=== PATIENT | female | born 1995 | race Caucasian/White ===

== ENCOUNTER → 2022-12-05 12:25 | Outpatient (CLI) | payer OTHER, SELFPAY ==
[2022-12-05 13:21] LABS: Appearance Urine UA CLEAR; Bilirubin Urine UA NEGATIVE (NEGATIVE); Color Urine UA YELLOW; Glucose Urine UA NEGATIVE (Negative); Ketones Urine UA NEGATIVE (NEGATIVE); Leukocyte Esterase Urine UA NEGATIVE (NEGATIVE); Nitrite Urine UA NEGATIVE (Negative); Occult Blood Urine UA NEGATIVE (Negative); Protein Urine UA NEGATIVE (Negative); Urobilinogen Urine UA 0.2 E.U./dL (0.2)
[2022-12-05 13:22] LABS: Add Manual Diff / Slide Review NO; Basophils Absolute Auto 0 /uL (0-100); Basophils Percent Auto 0.1 % (0-2); Eosinophils Absolute Auto 100 /uL (0-450); Eosinophils Percent Auto 0.7 % (2-4); Hematocrit 36.7 % (36-46); Hemoglobin 12.3 g/dL (12.0-16.0); Lymphocytes Absolute Auto 1600 /uL (1100-4500); Lymphocytes Percent Auto 19.3 % (25-40); Mean Corpuscular HGB Conc 33.5 % (30-36); Mean Corpuscular Hemoglobin 28.4 PG (26-34); Mean Corpuscular Volume 84.9 fL (80-100); Monocytes Absolute Auto 600 /uL (0-900); Monocytes Percent Auto 6.6 % (3-14); Neutrophils Absolute Auto 6200 /uL (1500-7000); Neutrophils Percent Auto 73.3 % (50-75); Platelet Count 215 X10^3/uL (150-400); Red Blood Cell Count 4.33 X10^6/uL (4.0-5.2); Red Cell Distribution Width 17.5 % (11.6-14.8); White Blood Cell Count 8.4 X10^3/uL (4.5-11.0)
[2022-12-06 09:09] LABS: RPR Screen Non Reactive (Non Reactive)
[2022-12-06 10:13] LABS: Varicella IgG Antibody 382 index (Immune >165)
[2022-12-06 16:14] LABS: Hepatitis B Surface Antigen NEGATIVE s/c (NEGATIVE)
[2022-12-06 16:23] LABS: HIV 1 & 2 Ab/Ag 4th Gen Combo NEGATIVE (NEGATIVE); Hep C Virus Ab w/Reflex Quant NEGATIVE s/c (NEGATIVE)
== END ==
PROVIDERS: Referring Provider Family Medicine; Visit Provider Family Medicine
DX: Z34.81 Encounter for supervision of other normal pregnancy, first trimester (principal)
CPT/HCPCS: 36415; 80055; 81003; 86787; 86803; 86850; 86900; 86901; 87086; 87389

== ENCOUNTER → 2023-02-15 15:17 | Outpatient (CLI) | payer OTHER, SELFPAY ==
--- NOTE | 2023-02-15 15:18 | DI.US.S_ITS ---
PROCEDURE: US OB >= 14 WEEKS FETUS INDICATIONS: ANATOMY SCAN OUTSIDE/PRIOR DATING DATA: Last menstrual period (LMP): 09/28/2022 LMP-based estimated date of delivery (ESTEE): 07/05/2023. First dating scan (date and location): 02/15/2023. Estimated date of delivery (ESTEE) from first dating scan: 07/05/2023. TECHNIQUE: Real-time scanning was performed of the fetus, with image documentation and biometric measurements. COMPARISON: None. FINDINGS: General: A single living intrauterine gestation is present. Presentation: Vertex. Placenta: Placental position is posterior , with complete placenta previa Amniotic fluid index: 14.2 cm, normal range is 5-24 cm. Single deepest vertical pocket is 4.4 cm. heart rate: 150 beats per minute. Maternal cervical canal: 4.4 cm long. Normal lower limit is 2.5 cm. biometrics: Biparietal diameter: 21 weeks 3 days Head circumference: 20 weeks 5 days Abdominal circumference: 22 weeks Femur length: 20 weeks 5 days Clinically estimated gestational age: 20 weeks Composite gestational age from present scan: 21 weeks 2 days Estimated weight and percentile: 414 g; 98th percentile Anatomic survey: Neuro: Ventricles are non-dilated at less than 10 mm. Cisterna magna is normal at 3-11 mm. Cerebellum is normal in size and morphology. Nuchal skin fold: Normal at less than 6 mm between 14-21 weeks gestational age. Face: Nose and lips, facial profile are normal. Spine: No evidence for spina bifida. Heart: 4-chambered heart is present, with normal LVOT. RVOT not well seen. Diaphragm: Diaphragm is intact. Stomach: Left-sided stomach is present. Kidneys: No hydronephrosis. Normal is less than 5 mm in 2nd trimester, less than 7 mm in 3rd trimester. Cord: 3-vessel cord has orthotopic insertion. Bladder: Normal in size. Extremities: All 4 extremities identified. IMPRESSION: 1. 21 week 2 day single living IUP corresponding to ultrasound ESTEE of 07/05/2023. 2. RVOT not well seen; otherwise normal anatomic survey. Short-term follow-up ultrasound recommended. 3. Complete placenta previa which can be reassessed on follow-up exam. We strive to produce accurate, complete, and clear reports of imaging services. To assist us in improving patient care, this report was composed using standard report templates and voice recognition software. Therefore, it may contain abnormal punctuation, insertions and/or omissions. Occasional wrong-word or sound-alike substitutions may occur. Though we review the report and make efforts to correct it, we do recommend that the report be read carefully in proper context to recognize any text inaccuracies. Dictated by: Óscar SCHULZ Interpreted: Shelia Willoughby MD on 02/15/2023 at 16:46 Transcribed by: ALLISON on 02/15/2023 at 16:48 Approved by: Shelia Willoughby M.D. on 02/15/2023 at 17:59
== END ==
PROVIDERS: Referring Provider Family Medicine; Visit Provider Family Medicine
DX: O44.02 Complete placenta previa NOS or without hemorrhage, second trimester (principal); Z3A.21 21 weeks gestation of pregnancy
CPT/HCPCS: 76811; 76817

== ENCOUNTER → 2023-03-04 09:29 | Outpatient (CLI) | payer OTHER, SELFPAY ==
--- NOTE | 2023-03-04 09:30 | DI.US.S_ITS ---
PROCEDURE: US OB FOLLOW UP INDICATIONS: PLACENTA PREVIA, RVOT FOLLOW UP OUTSIDE/PRIOR DATING DATA: Last menstrual period (LMP): 09/29/2019. LMP-based estimated date of delivery (ESTEE): 07/05/2023. The calculations are made using the clinical ESTEE of 07/05/2023. TECHNIQUE: Real-time scanning was performed of the fetus, with image documentation. Endovaginal scanning: Not performed COMPARISON: None. FINDINGS: General: A single living intrauterine gestation is present. A single living intrauterine gestation is present. Presentation: Vertex. Placenta: Placental position is posterior, without previa. Low lying placenta, measuring 2.4 centimeters from the cervical os. Amniotic fluid index: 13.8 cm, normal range is 5-24 cm. Single deepest vertical pocket is 3.8 cm. heart rate: 147 beats per minute. Maternal cervical canal: 5.3 cm long. Normal lower limit is 2.5 cm. Other: Right ventricular outflow tract appears within normal limits. IMPRESSION: Single living intrauterine at 22 weeks 3 days, ESTEE of 07/05/2023. Right ventricular outflow tract appears within normal limits. Low-lying placenta. The inferior tip measures 2.4 centimeters from the cervical os. We strive to produce accurate, complete, and clear reports of imaging services. To assist us in improving patient care, this report was composed using standard report templates and voice recognition software. Therefore, it may contain abnormal punctuation, insertions and/or omissions. Occasional wrong-word or sound-alike substitutions may occur. Though we review the report and make efforts to correct it, we do recommend that the report be read carefully in proper context to recognize any text inaccuracies. Dictated by: Guillermo Orr M.D. on 03/04/2023 at 14:45 Approved by: Guillermo Orr M.D. on 03/04/2023 at 14:48
== END ==
PROVIDERS: Referring Provider Family Medicine; Visit Provider Family Medicine
DX: O44.42 Low lying placenta NOS or without hemorrhage, second trimester (principal); Z3A.22 22 weeks gestation of pregnancy
CPT/HCPCS: 76816

== ENCOUNTER → 2023-04-10 10:39 | Outpatient (CLI) | payer OTHER, SELFPAY ==
[2023-04-10 13:10] LABS: Add Manual Diff / Slide Review NO; Basophils Absolute Auto 0 /uL (0-100); Basophils Percent Auto 0.2 % (0-2); Eosinophils Absolute Auto 0 /uL (0-450); Eosinophils Percent Auto 0.4 % (2-4); Hematocrit 35.9 % (36-46); Hemoglobin 12.2 g/dL (12.0-16.0); Lymphocytes Absolute Auto 2200 /uL (1100-4500); Lymphocytes Percent Auto 23.1 % (25-40); Mean Corpuscular HGB Conc 34.1 % (30-36); Mean Corpuscular Hemoglobin 31.6 PG (26-34); Mean Corpuscular Volume 92.8 fL (80-100); Monocytes Absolute Auto 600 /uL (0-900); Monocytes Percent Auto 6.5 % (3-14); Neutrophils Absolute Auto 6800 /uL (1500-7000); Neutrophils Percent Auto 69.8 % (50-75); Platelet Count 170 X10^3/uL (150-400); Red Blood Cell Count 3.87 X10^6/uL (4.0-5.2); Red Cell Distribution Width 14.6 % (11.6-14.8); White Blood Cell Count 9.7 X10^3/uL (4.5-11.0)
[2023-04-10 13:43] LABS: GTT (PREG) 1 Hour PP 50gm Dose 65 mg/dL (76-139)
== END ==
PROVIDERS: Referring Provider Family Medicine; Visit Provider Family Medicine
DX: D64.9 Anemia, unspecified (principal); O24.419 Gestational diabetes mellitus in pregnancy, unspecified control; Z3A.26 26 weeks gestation of pregnancy
CPT/HCPCS: 36415; 82950; 85025

== ENCOUNTER → 2023-06-07 14:03 | Outpatient (CLI) | payer OTHER, SELFPAY ==
[2023-06-09 12:41] LABS: Strep Grp B PCR NEG for Grp B Strep
== END ==
PROVIDERS: Visit Provider Family Medicine
DX: Z34.81 Encounter for supervision of other normal pregnancy, first trimester (principal)
CPT/HCPCS: 87653

== ENCOUNTER 2023-07-08 05:40 | Inpatient (IN) | payer OTHER, SELFPAY ==
[2023-07-08 06:14] VITALS: BP 130/85
[2023-07-08 07:15] LABS: Add Manual Diff / Slide Review NO; Basophils Absolute Auto 0 /uL (0-100); Basophils Percent Auto 0.4 % (0-2); Eosinophils Absolute Auto 0 /uL (0-450); Eosinophils Percent Auto 0.1 % (2-4); Hematocrit 37.6 % (36-46); Hemoglobin 12.8 g/dL (12.0-16.0); Lymphocytes Absolute Auto 1200 /uL (1100-4500); Lymphocytes Percent Auto 10.5 % (25-40); Mean Corpuscular HGB Conc 34.1 % (30-36); Mean Corpuscular Hemoglobin 31.4 PG (26-34); Mean Corpuscular Volume 92.3 fL (80-100); Monocytes Absolute Auto 400 /uL (0-900); Monocytes Percent Auto 3.6 % (3-14); Neutrophils Absolute Auto 10100 /uL (1500-7000); Neutrophils Percent Auto 85.4 % (50-75); Platelet Count 144 X10^3/uL (150-400); Red Blood Cell Count 4.07 X10^6/uL (4.0-5.2); Red Cell Distribution Width 15.1 % (11.6-14.8); White Blood Cell Count 11.8 X10^3/uL (4.5-11.0)
[2023-07-08] MEDS: ONDANSETRON 4 MG/2 ML INJ IV (07:21)
--- NOTE | 2023-07-08 09:43 | PM.OBHP.IH.1 ---
OB HPI Date/Time Date of admission: 07/08/23 Date Patient Seen: 07/08/23 History of Present Condition Chief complaint: OB ESTEE Calculator Estimated Delivery Date Method Current WG Current Estimate 07/05/23 Manual 40w 3d Final ESTEE - MARVA Other Estimates 07/05/23 LMP (Certain) 40w 3d 07/05/23 Ultrasound #1 40w 3d Estimated Gestational Age (weeks): 40w3d : 2 Para: 1 Narrative: 28yo at 40w3d here due to contractions. Pt reports contractions starting around 9:30pm last night, increasing in intensity and frequency since then. No LOF, vaginal bleeding. She continues to feel her baby move regularly. The pts has been uncomplicated. care: good care, initiated at week # (9) and pounds weight gain (50) Dating criteria OB: LMP confirmed by 1st trimester US Ultrasounds: normal 1st trimester US, normal mid trimester US and abnormal US findings (placenta previa, resolved on repeat u/s) Obstetrical complications: none Medical complications OB: none Preadmission Labs Last OB Lab Results: Blood Type O Positive 07/08/23 07:05 Antibody Screen Negative 07/08/23 07:05 Hematocrit 37.6 % (36-46) 07/08/23 07:05 Hemoglobin 12.8 g/dL (12.0-16.0) 07/08/23 07:05 Hepatitis B Surface Antigen Negative s/c (NEGATIVE) 12/05/22 12:50 Hepatitis C Antibody Negative s/c (NEGATIVE) 12/05/22 12:50 Rubella Antibody 112.0 IU/mL (>15) 12/05/22 12:50 Varicella-Zoster IgG Antibody 382 index (Immune >165) 12/05/22 12:50 Glucose 1 Hour 65 mg/dL (76-139) L 04/10/23 10:49 Group B Streptococcus (PCR) Neg for grp b strep 06/07/23 14:03 -: Urine: negative External Labs -: Urine: negative Prior (ies) Past Pregnancies Del. Date GA/Weeks Labor Lgth Wt Sex Route Outcome Anesthesia Place Delv Breastfeed Preg Comp Name 03/14/21 39.3 15 8 lb 8 oz Female vaginal live - full term epidural MD Genna 6 months none Ulises Evaluation Evaluation Baseline heart rate: 150 Variability: Moderate (11-25) monitor accelerations: Present Monitor Decelerations: Absent Contraction Frequency (minutes): 5 Uterine Contraction Intensity: Strong/Firm Status: Category l Dilation (cm): 4 Effacement (%): 90 station: -2 Position of cervix: mid Consistency: soft PFSH Medical History (Updated 03/29/23 @ 13:15 by La Gutierrez MD) Acne (~2009) hypertension Surgical History (Updated 12/09/22 @ 20:26 by Nina Weiss) Anesthesia [place] teeth extracted (~2009) Family History (Updated 11/13/22 @ 11:12 by Yuliet Kohli RN) Father Hypertension Social History marital status: number of children: 1 household members: spouse and children lives independently: Yes caregiver/support person: Yes housing: house pets and animals: Yes (dog) education level: college (bachelor's) occupational status: unemployed current occupational exposures/hazards: No special mechelle needs: No travel history: recent (domestic only) seatbelt use: always helmet use: Yes water heater temp set < 120 deg: Yes working smoke detector in home: Yes fire extinguisher in home: Yes carbon monox detector in home: Yes firearms in home: No do you feel safe at home: Yes Smoking Status: Never smoker second hand exposure: No alcohol intake: former (rarely when not ) substance use type: does not use during the past year weight has: remained stable well-balanced diet: about half the time daily servings fruits/ve-4 caffeine: Yes (8-10 oz coffee in AM) Type(s) of exercise: walking and bicycling Meds Home Medications and Allergies Home Medications Medication Instructions Recorded Confirmed Type vitamin-ferrous sulfate tab PO 11/13/22 07/05/23 History 27 mg iron-folic acid 0.8 mg tablet Double Electric Breast Pump and #1 ea 05/24/23 07/05/23 Rx supplies Allergies Allergy/AdvReac Type Severity Reaction Status Date / Time No Known Drug Allergies Allergy Unverified 07/05/23 14:18 OB Exam Resp Effort & Inspection: normal respiratory effort Auscultation: clear to auscultation bilaterally Cardio Rate: regular rate Rhythm: regular rhythm Heart Sounds: S1 normal, S2 normal and no murmurs GI Inspection: non-distended Palpation: Yes soft and No tender Presentation: vertex Objective Labs 07/08/23 07:05 Labs: Laboratory Results - last 24 hr 07/08/23 07:05 WBC 11.8 H RBC 4.07 Hgb 12.8 Hct 37.6 MCV 92.3 MCH 31.4 MCHC 34.1 RDW 15.1 H Plt Count 144 L Neut % (Auto) 85.4 H Lymph % (Auto) 10.5 L Stephenson % (Auto) 3.6 Eos % (Auto) 0.1 L Baso % (Auto) 0.4 Neut # (Auto) 61824 H Lymph # (Auto) 1200 Stephenson # (Auto) 400 Eos # (Auto) 0 Baso # (Auto) 0 Blood Type O Positive Antibody Screen Negative Assessment and Plan Assessment and Plan Assessment and Plan narrative: 28yo at 40w3d here in active labor. GBS negative, Rh positive. No complications with . - Expectant management, anticipate - FHT reassuring - GBS negative, no prophylaxis indicated - Epidural in place for pain control
--- NOTE | 2023-07-08 10:13 | PM.AN.REGBLK ---
Regional Block Pre-procedure Procedure: Continuous Lumbar Epidural for L&D Attending OB provider: La Gutierrez PMH/ROS narrative: healthy female with history of previous labor epidural. Hx: No personal or family history of anesthesia problems. PSH/Anesthesia history narrative: Labor epidural, wisdom teeth removal. ASA Class: II Labs: Hct 37.6 % (36-46) 07/08/23 07:05 Plt Count 144 X10^3/uL (150-400) L 07/08/23 07:05 Medications: Current Medications Generic Name Dose Route Start Last Admin Trade Name Freq PRN Reason Stop Dose Admin Calcium Carbonate 1,000 mg 07/08/23 06:14 Calcium Carbonate 500 Mg Tab PO Q4HR PRN Dyspepsia Carboprost Tromethamine 250 mcg 07/08/23 06:14 Carboprost 250 Mcg/Ml Ampul IM Q90M PRN Bleeding Diphenhydramine HCl 25 mg 07/08/23 09:04 Diphenhydramine 50 Mg/Ml Vial IV Q10M PRN Pruritis Ephedrine Sulfate 5 mg 07/08/23 09:04 Ephedrine 50 Mg/Ml Vial IV Q5M PRN Blood pressure decrease more than 20% of baseline. Fentanyl 100 mcg 07/08/23 06:14 Fentanyl 100 Mcg/2 Ml Inj IV Q1H PRN Pain, Severe (7-10) Oxytocin/Lactated Ringer's 30 unit in 500 mls @ 200 mls/hr 07/08/23 06:14 Oxytocin Premix IV CONT PRN Bleeding Protocol Tranexamic Acid 1,000 mg/ 100 mls @ 200 mls/hr 07/08/23 06:14 Sodium Chloride IV NOW PRN Bleeding Oxytocin/Lactated Ringer's 30 unit in 500 mls @ 2 mls/hr 07/08/23 06:15 Oxytocin Premix IV TITRATE LIZ Protocol 2 MILLIUNIT/MIN Lactated Ringer's 1,000 mls @ 100 mls/hr 07/08/23 06:15 Lactated Ringers IV CONT LIZ FENT 2MCG/ML BUPIV 0.125% EPI 200 mcg in 100 mls @ 5 mls/hr 07/08/23 09:15 Fentanyl/Bupiv/Ns 2mcg/Ml - 0.125% EPIDURAL CONT LIZ Lidocaine HCl 20 ml 07/08/23 06:14 Lidocaine 1% 20 Ml INJ INTRA-OP PRN Post Delivery Methylergonovine Maleate 0.2 mg 07/08/23 06:14 Methylergonovine 0.2 Mg Tablet PO Q6HR PRN Heavy Bleeding Methylergonovine Maleate 0.2 mg 07/08/23 06:14 Methylergonovine 0.2 Mg/Ml Vial IM NOW PRN Bleeding Misoprostol 800 mcg 07/08/23 06:14 Misoprostol 200 Mcg Tablet IN NOW PRN Bleeding Misoprostol 400 mcg 07/08/23 06:14 Misoprostol 200 Mcg Tablet SL NOW PRN Bleeding Nalbuphine HCl 2.5 mg 07/08/23 09:04 Nalbuphine 20 Mg/Ml Ampul IV Q10M PRN Pruritis Naloxone HCl 0.2 mg 07/08/23 06:14 Naloxone 0.4 Mg/Ml Vial IV Q2MIN PRN Opiate Reversal Naloxone HCl 0.4 mg 07/08/23 09:07 Naloxone 0.4 Mg/Ml Vial IV Q2MIN PRN Opiate Reversal Ondansetron HCl 4 mg 07/08/23 06:14 07/08/23 07:21 Ondansetron 4 Mg/2 Ml Inj IV 4 mg Q4HR PRN Administration Nausea And Vomiting Oxytocin 10 unit 07/08/23 06:14 Oxytocin 10 Unit/Ml Vial IM NOW PRN Bleeding Allergies: Allergies Allergy/AdvReac Type Severity Reaction Status Date / Time No Known Drug Allergies Allergy Unverified 07/05/23 14:18 Procedure Insertion date: 07/08/23 Insertion time: 07:50 Prep/Local: betadine x3 and 1% lidocaine Interspace: L3-L4 Patient position: sitting Needle: 18 gauge Bill Loss of resistance with: saline (+ Air) AHMET at (cm): 6 Catheter placed at SKIN (cm): 13 Catheter in SPACE (cm): 7 Insertion: No CSF, No Blood, No Paresthesia with insertion, No Paresthesia with injection and No Test dose reaction Initial Medications TEST DOSE time: 07:50 TEST DOSE: 1.5% lidocaine with epinephrine 1:200k (mL): 3 BOLUS DOSE time: 07:51 BOLUS DOSE (mL): 6 BOLUS DOSE med: other (2% Lidocaine) Infusion INFUSION: 0.125% bupivacaine and with fentanyl 2 mcg/mL Initial rate (mL/hr): 5 Post-procedure Anesthesia date START: 07/08/23 Anesthesia time START: 07:36 Anesthesia date END: 07/08/23 Anesthesia time END: 17:15 Post-procedure Anesthesia Assessment: Yes CV function: HR/BP stable, Yes Resp function: RR/sat/airway adequate, Yes Post-op hydration adequate, Yes Pain control adequate, Yes Nausea & vomiting absent, Yes Temperature > 36 C and Yes Mental status appropriate
[2023-07-08] MEDS: LACTATED RINGERS 1,000 ML 100 ML IV (14:36)
[2023-07-08] MEDS: OXYTOCIN PREMIX 30 UNIT/500 ML PLAST..BAG IV (14:36)
--- NOTE | 2023-07-08 16:09 | PM.OBPNLAB ---
Date/Time Date Patient Seen: 07/08/23 Time Patient Seen: 12:45 Pain Control Pain control: epidural Pelvic Exam Dilation (cm): 5 Effacement (%): 80 station: -2 Comments: After informed consent, AROM performed with clear fluid present Contractions Contraction frequency (min): 5 Contraction pattern: Irregular Contraction intensity: Strong/Firm Status status: Category l Heart Rate Baseline: 135 Monitor Accelerations: Present Monitor Decelerations: Absent Monitor Variability: Moderate Assessment and Plan Comments: 28yo at 40w3d here in active labor. GBS negative, Rh positive. No complications with . AROM with clear fluid. - Expectant management, anticipate . If contractions don't increase in frequency with AROM, plan to initiate pitocin. - FHT reassuring
--- NOTE | 2023-07-08 17:54 | PM.OBPRVD ---
Labor & Delivery Delivery date: 07/08/23 Intrapartal Events: None Cervical ripening method: none Induction method: none Delivery augmentation: rupture of membranes and pitocin Delivery monitor: external FHT and external uterine Route of delivery: Episiotomy description: None L&D Laceration Description: Perineal - 2nd Degree Quantitative Blood Loss: 752 Narrative: PROCEDURE: at 40w3d presented in active labor and was admitted to Labor and Delivery. The patient progressed through the 1st stage over 11 hours. AROM occured at 12:41 with clear fluid. Pain was controlled with an epidural. Contractions spaced out, and pitocin was initiated. This was then turned off when the pt had a large variable deceleration. FHT remained overall reassuring throughout the rest of labor. The patient progressed through the 2nd stage over 30 minutes and delivered a viable male with APGARs 9/9 at 17:15 via without complications. The cord was cut and clamped after it stopped pulsating. The placenta delivered with gentle cord traction, and appeared complete. The perineum and vagina were inspected with 2nd degree perineal laceration repaired with 2-O Vicryl. After repair, with fundal massage, 2 very large clots were produced from the uterus. Tone was then excellent, and on additional uterotonics were required beyond the usual pitocin. Needle and sponge counts were correct.? The vagina was inspected and no items were left in situ. Carlo was doing well with Viral, her and , Ryan, at bedside. PREPROCEDURE DIAGNOSIS: Intrauterine at 40w3d GBS negative RH positive POSTPROCEDURE DIAGNOSIS: Intrauterine at 40w3d, delivered Same as preprocedure Baby 1: Infant gender: Male Presentation: vertex Position: Right Occiput Anterior Placenta delivery description: Spontaneous Cord Vessel Description: 3 Vessels score (1 min): 9 score (5 min): 9 weight: 9 lb 7.749 oz Plan for aftercare: Routine care
[2023-07-08] MEDS: ACETAMINOPHEN 325 MG TABLET 650 MG PO (20:35)
[2023-07-08] MEDS: IBUPROFEN 600 MG TABLET PO (20:35)
[2023-07-08] MEDS: LANOLIN OINT 7 GM 1 APPLIC TOP (20:35)
[2023-07-09] MEDS: IBUPROFEN 600 MG TABLET PO (05:28)
[2023-07-09] MEDS: ACETAMINOPHEN 325 MG TABLET 650 MG PO (05:28)
[2023-07-09 05:30] LABS: Hematocrit 27.7 % (36-46); Hemoglobin 9.5 g/dL (12.0-16.0)
--- NOTE | 2023-07-09 08:54 | PM.OBDS.1 ---
Discharge Providers Provider Date of admission: 07/08/23 05:40 Discharge Date: 07/09/23 Primary care physician: RAMAN Reynolds Consults: 07/08/23 06:14 Consult to Anesthesiology Urgent Comment: Consulting Provider: Anesthesiologist Reason for consultation: Epidural 07/09/23 17:53 Consult to Food Service Cashier Routine Comment: Discharge provider: La Gutierrez MD Summary Hospital Course Date Patient Seen: 07/09/23 Diagnoses: Intrauterine at 40w3d GBS negative RH positive Hospital Course: The pt presented in active labor. She had a epidural for pain control. AROM was performed with clear fluid present. Pitocin was initiated due to spacing of contractions. The pt progressed to complete and had an uncomplicated of a viable baby boy. A 2nd degree perineal laceration was repaired. , there were no complications. At the time of discharge she was voiding, ambulating, and passing flatus without difficulty. Her lochia was decreasing appropriately. Her pain was well controlled. She was with good latch. She will f/u in 6 weeks for check. He is getting a vasectomy for contraception. Peripartum Data Infant Delivery Method: Natural Vaginal Laceration Description: Perineal - 2nd Degree Episiotomy description: None Procedures: Spontaneous vaginal delivery complications: none [place] 1: Gender: Male Disposition of : home Status at Discharge Cognitive/behavioral status at discharge: oriented Functional status at discharge: independent ambulation Overall status at discharge: patient is progressing back to baseline Time Spent with Patient Time attestation: Total time spent providing and/or coordinating discharge services: Objective Labs 07/09/23 05:23 Labs: Laboratory Results - last 24 hr 07/09/23 05:23 Hgb 9.5 L Hct 27.7 L Exam Narrative Exam Narrative: Gen: NAD, sitting comfortably in bed, appears well CV: RRR, no murmurs Resp: clear to auscultation bilaterally Abd: soft, appropriately tender, fundus firm and below the umbilicus, nondistended Ext: no edema Discharge Plan Discharge Plan Patient Disposition: Home Discharge orders & Medications Prescriptions: New ferrous sulfate 325 mg (65 mg iron) Tablet 325 mg PO DAILY Qty: 30 0RF Continued (DME) Double Electric Breast Pump and supplies See Rx Instructions .ROUTE .MEDSUPPLY Qty: 1 0RF Rx Instructions: Use daily as directed vit-ferrous sulfat-FA 27 mg iron- 0.8 mg tablet PO Follow up/Referrals: La Gutierrez MD [Physician] - ( Appt w/ Dr. Gutierrez: Saturday, August 18 @ 10:30am) Diet/Activity/Treatments Diet: Diet as Tolerated and Regular Skin/Wound/Dressing Care Report to your healthcare provider any signs of infection, such as:: chills, fever, increased pain and unusual drainage Visit Report/Discharge Packet Instructions: DI for Labor and Delivery, Vaginal Stand Alone Forms: Discharge: Care, Patient Portal/API, Stroke Signs & Symptoms Discharge Data Primary Care Provider: Romelia Tinoco
[2023-07-09 17:09] VITALS: BP 124/75; PULSE 87; RESP 16; TEMP 36.5
== END 2023-07-09 17:15 | disposition home or self-care (01) | DRG 807 ==
PROVIDERS: Admitting Provider Family Medicine; PCP Nurse Practitioner Family; Referring Provider Family Medicine; Visit Provider Family Medicine
DX: O70.1 Second degree perineal laceration during delivery (principal); Z37.0 Single live birth; Z3A.40 40 weeks gestation of pregnancy
CPT/HCPCS: 36415; 59050; 59400; 85014; 85018; 85025; 86850; 86900; 86901; G0379; J2405; J2590